=== PATIENT | female | born 1995 | race Caucasian/White ===

== ENCOUNTER 2017-06-04 17:29 | Emergency (ER) | payer OTHER ==
[2017-06-04 17:34] VITALS: BP 114/71; PULSE 87; TEMP 98.6; BMI 25.6
[2017-06-04] MEDS ORDERED: traMADol HCL 50 MG TABLET PO ONE (18:04)
[2017-06-04] MEDS ORDERED: CYCLOBENZAPRINE HCL 10 MG TABLET (FP) PO ONE (18:04)
--- NOTE | 2017-06-04 18:04 | PDOC ---
History of Present Illness - General Chief Complaint: Back Pain Stated Complaint: BACK PAIN Time Seen by Provider: 06/04/17 17:34 - History of Present Illness Initial Comments: 06/04/17 18:02 CC: 2-3 day h/o Exacerbation of chronic back pain Patient is a 21 y.o. transgender (female --> male) male who presents c/o 2-3 day h/o exacerbation of lumbar/thoracic back pain likely occupational induced. Patient states he first started having back pain following a trampoline jumping incident in which he was sitting with his knees bent and his brother jumped on the trampoline causing the patient to be thrown in the air. Patient states he immediately noted a sharp pain and some associated headache for a few days and since that time has had an aching pain. 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 Patient denies any bladder or bowel incontinence, difficulty ambulating or reduced range of motion. Past History - Past Medical History Allergies/Adverse Reactions: Allergies Allergy/AdvReac Type Severity Reaction Status Date / Time No Known Allergies Allergy Verified 06/04/17 17:30 Home Medications: Ambulatory Orders Cyclobenzaprine HCl [Flexeril -] 10 mg PO TID #21 tablet 06/04/17 Tramadol HCl 50 mg PO Q6H #28 tablet MDD 4 tablet 06/04/17 - Psycho/Social/Smoking Cessation Hx Anxiety: No Suicidal Ideation: No Smoking History: Never smoked Information on smoking cessation initiated: No Review of Systems - Review of Systems Constitutional: No: Chills, Diaphoresis, Fever, Loss of Appetite HEENTM: No: Blurred Vision, Throat Pain Respiratory: No: Cough, Orthopnea, Shortness of Breath, SOB with Exertion, SOB at Rest Cardiac (ROS): No: Chest Pain, Edema ABD/GI: No: Constipated, Diarrhea, Nausea, Vomiting : No: Burning, Dysuria Musculoskeletal: Yes: Back Pain Psychiatric: No: Anxiety, Depression All Other Systems: Reviewed and Negative *Physical Exam - Vital Signs Last Vital Signs Temp Pulse Resp BP Pulse Ox 98.6 F 87 18 114/71 99 06/04/17 17:30 06/04/17 17:30 06/04/17 17:30 06/04/17 17:30 06/04/17 17:30 - Physical Exam General Appearance: Yes: Nourished, Appropriately Dressed HEENT: positive: EOMI, CAITLYN Neck: positive: Trachea midline, Supple Respiratory/Chest: positive: Lungs Clear, Normal Breath Sounds Cardiovascular: positive: Regular Rhythm, Regular Rate, S1, S2 Gastrointestinal/Abdominal: positive: Normal Bowel Sounds, Soft Musculoskeletal: positive: Normal Inspection, Other (Full ROM in back ) Extremity: positive: Normal Capillary Refill, Coldness Integumentary: positive: Normal Color, Dry, Warm Neurologic: positive: portable pinch riveter II-XII NML intact, Motor Strength 5/5, Other (Normal Gait) Medical Decision Making - Medical Decision Making 06/04/17 18:15 Patient is a 21 y.o. transgender (female --> male) male who presents with back pain. As patient has full ROM, normal gait and was asymptomatic for any bowel or bladder incontinence, therapeutic plan focused on pain control. A review of [facility] showed patient had recieved a 1 month prescription for Tramadol in August 2016, but not other pain medications since that time. As patient has no seizure history, patient was prescribed both Tramadol and Flexiril and instructed to follow up with both his PCP and orthopedic surgery. At the time of discharge patient was ambulatory, alert his condition was improved and he understood the treatment plan. *DC/Admit/Observation/Transfer Diagnosis at time of Disposition: Back pain - Discharge Dispostion Disposition: HOME Condition at time of disposition: Good - Prescriptions Prescriptions: Cyclobenzaprine HCl [Flexeril -] 10 mg PO TID #21 tablet Tramadol HCl 50 mg PO Q6H #28 tablet MDD 4 tablet - Referrals Referrals: London Marte MD [Staff Physician] - - Patient Instructions Printed Discharge Instructions: DI for Thoracic Back Pain, Exercise May Reduce Risk of Low Back Pain, Managing Chronic Low Back Pain Additional Instructions: You were evaluated and treated today in the Emergency Department for back pain. A seven day prescription of pain medications, Flexeril and Tramadol has been called to your pharmacy. Please make a follow-up appointment with both your primary care doctor as well as orthopedic surgery for further evaluation. Please return to the emergency department should you experience any numbness, tingling, difficulty walking or loss of bladder or bowel control.
[2017-06-04] MEDS ORDERED: traMADol HCL 50 MG TABLET ONE (18:05)
[2017-06-04] MEDS ORDERED: CYCLOBENZAPRINE HCL 10 MG TABLET (FP) ONE (18:10)
--- NOTE | 2017-06-04 18:16 | PDOC ---
Attending Attestation - Resident Resident Name: Thuy Lyon - ED Attending Attestation I have performed the following: I have examined & evaluated the patient, The case was reviewed & discussed with the resident, I agree w/resident's findings & plan, Exceptions are as noted - HPI HPI: 06/04/17 18:05 21-year-old male, in transition from female to male transgender presents to the immersed department for back spasm. Several months ago, the patient had injured his back after Trampling. 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 No Bony Tenderness. Denies Numbness or Weakness or Urinary or Bowel Incontinence. Patient's Been Taking Aleve with Minimal Relief and Came into the ED. - Physicial Exam PE: 06/04/17 18:16 GENERAL: Awake, alert, and fully oriented, in no acute distress. HEAD: No signs of trauma EYES: PERRLA, EOMI, sclera anicteric, conjunctiva clear ENT: Auricles normal inspection, hearing grossly normal, nares patent, oropharynx clear without exudates. NECK: Normal ROM, supple, no lymphadenopathy, JVD, or masses LUNGS: Breath sounds equal, clear to auscultation bilaterally. No wheezes, and no crackles HEART: Regular rate and rhythm, normal S1 and S2, no murmurs, rubs or gallops ABDOMEN: Soft, nontender, normoactive bowel sounds. No guarding, no rebound. No masses BACK: bilateral mid-paraspinal muscle tenderness to palpation. no bony tenderness EXTREMITIES: Normal range of motion, no edema. No clubbing or cyanosis. No cords, erythema, or tenderness NEUROLOGICAL: Cranial nerves II through XII grossly intact. Normal speech, normal gait SKIN: Warm, Dry, normal turgor, no rashes or lesions noted. - Medical Decision Making 06/04/17 18:16 Vital Signs Temp Pulse Resp BP Pulse Ox 98.6 F 87 18 114/71 99 06/04/17 17:30 06/04/17 17:30 06/04/17 17:30 06/04/17 17:30 06/04/17 17:30 This is muscle spasm. We'll prescribe tramadol and Flexeril. I advised patient that he should follow-up with his primary care physician regards to physical therapy. Early mobilization. Supportive care and heat packs. Patient verbalizes and understands plan.
== END 2017-06-04 18:32 | disposition home or self-care (01) ==
LOC: EDSEX 17:29 → FER 17:29
DX: M54.9 Dorsalgia, unspecified (principal); X58.XXXA Exposure to other specified factors, initial encounter; Y93.44 Activity, trampolining; Y92.9 Unspecified place or not applicable
CPT/HCPCS: 99283-25